=== PATIENT | female | born 1975 | race American Indian/Alaskan Native ===

== ENCOUNTER 2018-05-24 12:39 | Emergency (ER) | payer MEDICAID ==
[2018-05-24] MEDS ORDERED: DUONEB *Not for PRN Use IH ONE ×2 (13:38→16:13)
[2018-05-24] MEDS ORDERED: ZOFRAN IV ONE (13:39)
[2018-05-24] MEDS ORDERED: NACL 0.9% 500 ML 500 ML IV ONE ×2 (13:39→16:46)
--- NOTE | 2018-05-24 13:44 | Emergency Department Report ---
ED Shortness of Breath HPI - General Chief Complaint: Upper Respiratory Infection Stated Complaint: RESPIRATORY INFECTION Time Seen by Provider: 05/24/18 13:35 Source: patient, EMS Mode of arrival: Wheelchair Limitations: No Limitations - History of Present Illness Initial Comments: 43-year-old female past medical history asthma nonsmoker presents with complaint of 2-3 days of progressively worsening cough and subjective fever and chills with associated nausea. Patient states she felt very short of breath secondary to wheezing and called EMS to come to the hospital. Patient is awake alert and oriented has audible wheezing at bedside. Accompanied by at bedside. Denies chest pain but does endorse chest tightness. No previous history of PE or DVT. No recent travel no contraceptive use. Patient states she has not been using any medicines for her asthma recently. MD Complaint: shortness of breath, cough, "asthma attack" Onset/Timin -: days(s) Severity: moderate Improves With: oxygen, bronchodilators Known History Of: asthma Associated Symptoms: cough - Related Data Home Oxygen Therapy: No Previous Rx's Medication Instructions Recorded Last Taken Type Azithromycin [Zithromax Z-DEE] 250 mg PO DAILY #6 tablet 01/25/14 Unknown Rx Cyclobenzaprine HCl [Flexeril 5 MG 5 mg PO Q8HR #20 tablet 08/24/15 Unknown Rx TAB] Lisinopril/Hydrochlorothiazide 1 each PO DAILY #30 tablet 08/24/15 Unknown Rx [Zestoretic 20-12.5 mg] traMADol [Ultram 50 MG tab] 50 mg PO Q6HR PRN #20 tablet 08/24/15 Unknown Rx ALBUTEROL NEB's [Proventil 0.083% 2.5 mg IH Q4H PRN #1 box 05/24/18 Unknown Rx NEBS] Albuterol Sulfate [Ventolin HFA] 2 puff IH Q4H PRN #1 hfa.aer.ad 05/24/18 Unknown Rx Azithromycin [Zithromax Z-DEE] 250 mg PO QDAY #1 pack 05/24/18 Unknown Rx Nebulizer [Compact Compressor 1 each MC Q4H PRN #1 each 05/24/18 Unknown Rx Nebulizer] Ondansetron [Zofran Odt] 4 mg PO Q8H PRN #12 tab.rapdis 05/24/18 Unknown Rx Prednisone [predniSONE 10 mg 10 mg PO .TAPER #1 tab.ds.pk 05/24/18 Unknown Rx (6-Day Pack, 21 Tabs)] Allergies Allergy/AdvReac Type Severity Reaction Status Date / Time No Known Allergies Allergy Verified 05/24/18 12:50 ED Review of Systems ROS: Stated complaint: RESPIRATORY INFECTION Other details as noted in HPI ED Past Medical Hx - Past Medical History Hx Hypertension: Yes Hx Asthma: Yes - Surgical History Hx Cholecystectomy: Yes Additional Surgical History: tonsillectomy - Social History Smoking Status: Current Every Day Smoker Substance Use Type: Alcohol - Medications Home Medications: Home Medications Medication Instructions Recorded Confirmed Last Taken Type Azithromycin [Zithromax Z-DEE] 250 mg PO DAILY #6 tablet 01/25/14 Unknown Rx Cyclobenzaprine HCl [Flexeril 5 MG 5 mg PO Q8HR #20 tablet 08/24/15 Unknown Rx TAB] Lisinopril/Hydrochlorothiazide 1 each PO DAILY #30 tablet 08/24/15 Unknown Rx [Zestoretic 20-12.5 mg] traMADol [Ultram 50 MG tab] 50 mg PO Q6HR PRN #20 tablet 08/24/15 Unknown Rx ALBUTEROL NEB's [Proventil 0.083% 2.5 mg IH Q4H PRN #1 box 05/24/18 Unknown Rx NEBS] Albuterol Sulfate [Ventolin HFA] 2 puff IH Q4H PRN #1 hfa.aer.ad 05/24/18 Unknown Rx Azithromycin [Zithromax Z-DEE] 250 mg PO QDAY #1 pack 05/24/18 Unknown Rx Nebulizer [Compact Compressor 1 each MC Q4H PRN #1 each 05/24/18 Unknown Rx Nebulizer] Ondansetron [Zofran Odt] 4 mg PO Q8H PRN #12 tab.rapdis 05/24/18 Unknown Rx Prednisone [predniSONE 10 mg 10 mg PO .TAPER #1 tab.ds.pk 05/24/18 Unknown Rx (6-Day Pack, 21 Tabs)] ED Physical Exam - General Limitations: No Limitations General appearance: alert, in no apparent distress - Head Head exam: Present: atraumatic, normocephalic - Eye Eye exam: Present: normal appearance - ENT ENT exam: Present: mucous membranes moist - Neck Neck exam: Present: normal inspection - Respiratory Respiratory exam: Present: wheezes (wheezing bilateral lung wolf). Absent: respiratory distress - Cardiovascular Cardiovascular Exam: Present: regular rate, normal rhythm. Absent: systolic murmur, diastolic murmur, rubs, gallop - GI/Abdominal GI/Abdominal exam: Present: soft, normal bowel sounds - Extremities Exam Extremities exam: Present: normal inspection - Back Exam Back exam: Present: normal inspection - Neurological Exam Neurological exam: Present: alert, oriented X3 - Psychiatric Psychiatric exam: Present: normal affect, normal mood - Skin Skin exam: Present: warm, dry, intact, normal color. Absent: rash ED Course Vital Signs 05/24/18 05/24/18 12:50 15:44 Temperature 98.6 F 98.7 F Pulse Rate 103 H 98 H Respiratory 28 H 18 Rate Blood Pressure 153/115 Blood Pressure 138/80 [Left] O2 Sat by Pulse 96 99 Oximetry ED Medical Decision Making - Lab Data Result diagrams: 05/24/18 13:46 05/24/18 13:46 - Medical Decision Making A/P: Asthma exacerbation, possible early acute community-acquired pneumonia 1-d-dimer negative, proBNP unremarkable. No discrete consolidation on x-ray however there appears to be a small dense area noted above right hemidiaphragm. In context to patient's subjective fevers chills productive cough and shortness of breath will treat empirically for community-acquired pneumonia with azithromycin. I discussed this with attending. 2-course of prednisone, albuterol when necessary 3-follow-up with primary care 4-vital signs stabilized before discharge Critical care attestation.: If time is entered above; I have spent that time in minutes in the direct care of this critically ill patient, excluding procedure time. ED Disposition Clinical Impression: Asthma Qualifiers: Asthma severity: moderate Asthma persistence: unspecified Asthma complication type: with acute exacerbation Qualified Code(s): J45.901 - Unspecified asthma with (acute) exacerbation Disposition: -01 TO HOME OR SELFCARE Is pt being admited?: No Does the pt Need Aspirin: No Condition: Stable Instructions: Asthma (ED), Reactive Airways Disease (ED), Community-acquired Pneumonia (ED) Prescriptions: ALBUTEROL NEB's [Proventil 0.083% NEBS] 2.5 mg IH Q4H PRN #1 box PRN Reason: Wheezing Albuterol Sulfate [Ventolin HFA] 2 puff IH Q4H PRN #1 hfa.aer.ad PRN Reason: Shortness Of Breath Azithromycin [Zithromax Z-DEE] 250 mg PO QDAY #1 pack Nebulizer [Compact Compressor Nebulizer] 1 each MC Q4H PRN #1 each PRN Reason: Wheezing Ondansetron [Zofran Odt] 4 mg PO Q8H PRN #12 tab.rapdis PRN Reason: Nausea Prednisone [predniSONE 10 mg (6-Day Pack, 21 Tabs)] 10 mg PO .TAPER #1 tab.ds.pk Referrals: [facility] [Provider Group] - 3-5 Days Forms: Accompanied Note, Work/School Release Form(ED) Time of Disposition: 16:25
[2018-05-24] MEDS ORDERED: XOPENEX IH ONE (14:14)
[2018-05-24 14:23] LABS: BUN/Creatinine Ratio 9; Blood Urea Nitrogen 6 mg/dL (7-17); Calcium 9.4 mg/dL (8.4-10.2); Hemolysis Index 5
[2018-05-24 14:46] LABS: Hematocrit 41.3 % (30.3-42.9); Hemoglobin 13.5 gm/dl (10.1-14.3); Mean Corpuscular HGB Conc 33 % (30-34); Mean Corpuscular Hemoglobin 26 pg (28-32); Mean Corpuscular Volume 80 fl (79-97); Red Blood Count 5.14 M/mm3 (3.65-5.03)
[2018-05-24 14:49] LABS: Platelet Count 158 K/mm3 (140-440); Red Cell Distribution Width 27.9 % (13.2-15.2)
[2018-05-24] MEDS ORDERED: MAGNESIUM SULFATE 1 GM in NACL 0.9% 50 ML IV ONE (15:00)
--- NOTE | 2018-05-24 15:17 | XRay Report ---
FINAL REPORT EXAM: XR CHEST 1V AP HISTORY: SOB TECHNIQUE: AP portable view of the chest PRIORS: None. FINDINGS: Lines, tubes, and devices: There is tubing overlying both the lung apices. Lungs and pleura: Trachea is normal in position. Vague nodular density just above the right diaphragm is probably a nipple shadow. However, this should be confirmed with nipple markers with PA and lateral views. Lungs are otherwise clear of infiltrate, pleural effusion, vascular congestion, or pneumothorax. Cardiomediastinal silhouette: Cardiac and mediastinal silhouettes are unremarkable. Other: Bony structures are intact. IMPRESSION: No acute cardiopulmonary process seen. Vague nodular density directly above the right hemidiaphragm. This should be confirmed with nipple markers on PA and lateral views as a nipple shadow.
[2018-05-24] MEDS ORDERED: ZITHROMAX PO ONE (15:32)
[2018-05-24 15:37] LABS: Band Neutrophils # (Manual) 0.1 K/mm3; Basophils % (Manual) 0 % (0.0-1.8); Eosinophils % (Manual) 0 % (0.0-4.3); Total Cells Counted 100
[2018-05-24 15:38] LABS: Anisocytosis Few; Hypochromasia Few; Platelet Estimate Consistent w Auto; Poikilocytosis Few; Target Cells Few
[2018-05-24] MEDS ORDERED: K-DUR PO ONE (16:30)
[2018-05-24] MEDS ORDERED: VALIUM PO ONE (16:46)
[2018-05-24 18:08] VITALS: BP 146/42
== END 2018-05-24 18:07 | disposition home or self-care (01) ==
LOC: ED 12:39
DX: J45.901 Unspecified asthma with (acute) exacerbation (principal); I10 Essential (primary) hypertension; F17.200 Nicotine dependence, unspecified, uncomplicated; Z90.89 Acquired absence of other organs
CPT/HCPCS: 36415; 71045; 80048; 82140; 82805; 83880; 85007; 85025; 85379; 94640; 96365; 96375; 99285; J2405; J2930; J3475; J7040

== ENCOUNTER 2019-09-08 07:40 | Day surgery (SDC) | payer MEDICAID ==
--- NOTE | 2019-09-06 11:09 | Anesthesia Consultation ---
Anesthesia Consult and Med Hx Date of service: 09/08/19 - Airway Anesthetic Teeth Evaluation: Good, Partials ROM Head & Neck: Adequate Mental/Hyoid Distance: Adequate Mallampati Class: Class II Intubation Access Assessment: Good - Pre-Operative Health Status ASA Pre-Surgery Classification: ASA2 Proposed Anesthetic Plan: General - Pulmonary Hx Smoking: Yes Hx Asthma: Yes ("have symptoms when sick" Last used meds 03/2019) - Cardiovascular System Hx Hypertension: Yes - Central Nervous System Hx Psychiatric Problems: No - Hematic Hx Anemia: Yes (Several Iron infusion) - Other Systems Hx Alcohol Use: Yes (Occas) Hx Substance Use: Yes (Marijuana occas) Hx Cancer: No - Additional Comments Anesthesia Medical History Comments: Pt had postoperative pruritus. Give benadryl or dramamine preop
[2019-09-06 11:43] LABS: Basophils # (Auto) 0.1 K/mm3 (0.0-0.1); Basophils % (Auto) 1.4 % (0.0-1.8); Eosinophils # (Auto) 0.1 K/mm3 (0.0-0.4); Eosinophils % (Auto) 1.6 % (0.0-4.3); Hematocrit 34.5 % (30.3-42.9); Hemoglobin 11.2 gm/dl (10.1-14.3); Lymphocytes # (Auto) 3.1 K/mm3 (1.2-5.4); Lymphocytes % (Auto) 36.1 % (13.4-35.0); Mean Corpuscular HGB Conc 32 % (30-34); Mean Corpuscular Volume 80 fl (79-97); Monocytes # (Auto) 0.5 K/mm3 (0.0-0.8); Monocytes % (Auto) 6.1 % (0.0-7.3); Platelet Count 246 K/mm3 (140-440); Red Blood Count 4.33 M/mm3 (3.65-5.03); Red Cell Distribution Width 15.4 % (13.2-15.2)
--- NOTE | 2019-09-08 07:34 | Short Stay Summary ---
Short Stay Documentation Date of service: 09/08/19 Narrative H&P: 44-year-old with a history of dysfunctional uterine bleeding. The patient underwent endometrial biopsy with findings of benign secretory endometrium. The pelvic ultrasound was unremarkable. The patient attempted medical management without significant improvement of her symptoms. She has elected to undergo surgical management of her uterine bleeding. - History Principal diagnosis: dysfunctional uterine bleeding Past Medical History: No medical history Past Surgical History: cholecystectomy, , tonsillectomy, Other (cerclage) Social history: - Allergies and Medications Current Medications: Allergies lisinopril Adverse Reaction (Verified 09/06/19 12:59) Cough Home Medications Medication Instructions Recorded Confirmed Last Taken Type Ibuprofen [Motrin 800 MG tab] 800 mg PO Q8H PRN 09/03/19 09/03/19 Unknown History - Physical exam General appearance: no acute distress Integumentary: no rash HEENT: Atraumatic Lungs: Clear to auscultation Breasts: deferred Heart: Regular rate Gastrointestinal: normal Female Genitourinary: deferred Rectal Exam: deferred Extremities: no ischemia Neurological: Normal gait - Brief post op/procedure progress note Date of procedure: 09/08/19 Pre-op diagnosis: dysfunctional uterine bleeding Post-op diagnosis: same Procedure: Hysteroscopy; endometrial ablation via NovaSure Anesthesia: RADHA Surgeon: ANDREW ROGERS Estimated blood loss: minimal Pathology: none Condition: stable - Hospital course Hospital course: The patient was admitted the day of surgery and underwent a NovaSure. Please see operative note for details of surgery. Postoperative course was uneventful. - Disposition Condition at discharge: Good Disposition: DC-01 TO HOME OR SELFCARE Short Stay Discharge Plan Activity: other (pelvic rest for 1 week) Diet: regular Additional Instructions: Scheduled follow-up with Dr. Johnson in 2-4 weeks Prescriptions: Ibuprofen [Motrin] 800 mg PO Q8HR PRN #60 tablet PRN Reason: Pain, Mild (1-3) HYDROcodone/APAP 5-325 [[place] 5/325] 1 each PO Q6HR PRN #20 tablet PRN Reason: Pain
[2019-09-08] MEDS ORDERED: fentaNYL 100 MCG/2 ML INJ ONE (07:41)
[2019-09-08] MEDS ORDERED: PROPOFOL 200 MG/20 ML VIAL IV ONE (07:41)
[2019-09-08] MEDS ORDERED: MIDAZOLAM 2 MG/2 ML INJ IV NR (07:43)
[2019-09-08] MEDS ORDERED: ROCURONIUM 50 MG/5 ML INJ IV ONE (07:44)
[2019-09-08] MEDS ORDERED: LACTATED RINGERS 1,000 ML IV SCH (07:44)
[2019-09-08] MEDS ORDERED: SODIUM CHLORIDE 0.9% IRRIG SOLN 3000 ML IR ONE (07:47)
[2019-09-08] MEDS ORDERED: BACTERIOSTATIC SODIUM CHLORIDE 0.9% 30 ML VIAL INFILTRATI ONE (07:50)
[2019-09-08] MEDS ORDERED: ONDANSETRON 4 MG/2 ML INJ ONE (08:46)
[2019-09-08] MEDS ORDERED: dexAMETHasone 20 MG/5 ML VIAL ONE (08:46)
[2019-09-08] MEDS ORDERED: diphenhydrAMINE 50 MG/ML VIAL ONE (08:50)
[2019-09-08] MEDS ORDERED: LIDOCAINE MPF (2%) 20 MG/1 ML VIAL 5 ML ONE (09:00)
--- NOTE | 2019-09-08 09:03 | Operative Report ---
Operative Report Operative Report: Date of procedure: 09/08/2019 Pre-operative diagnosis: DysFunctional uterine bleeding Post-operative diagnosis: Same as above Procedure name(s): Hysteroscopy; endometrial ablation via NovaSure Surgeon: Lay Stack M.D. Warranty Manager: None Anesthesia: Gen. endotracheal anesthesia Findings normal endometrial cavity Indication: 44-year-old 144 with dysfunctional uterine bleeding Procedure The patient was taken to the operating room and given general tracheal anesthesia without complication. The patient was prepped and draped in a normal sterile fashion. A bivalve speculum was placed in the patient's vagina single- tooth tenaculums placed on the anterior lip of the cervix. The cervical os was dilated with graduated dilators. A uterine sound was inserted. The hysteroscope was then placed. Insufflation of the uterine cavity was performed with normal saline. Gen. survey of the uterine cavity revealed normal endometrial cavity. The hysteroscope was then removed. The NovaSure device was then inserted. The endometrial length was 5.0 cm and the uterine width was 4.5 cm. The device was engaged and it passed the surveillance of the uterine cavity. The NovaSure device was then deployed with a energy of 127 W that lasted for 2 minutes. The NovaSure device was then removed. The hysteroscope was again reinserted. There was evidence of charring of the endometrial surface. The remainder of the vaginal instruments were then removed atraumatically. The patient was then successfully extubated taken to the recovery room. All sponge laps and needle counts were correct 2.
[2019-09-08] MEDS ORDERED: fentaNYL 100 MCG/2 ML INJ IV PRN (09:23)
[2019-09-08] MEDS ORDERED: ONDANSETRON 4 MG/2 ML INJ IV PRN (09:23)
[2019-09-08] MEDS: HYDROmorphone 1 MG/1 ML INJ IV PRN ×2 (09:26→10:14)
[2019-09-08] MEDS ORDERED: HYDROmorphone 1 MG/1 ML INJ ONE (09:29)
[2019-09-08 10:30] VITALS: BP 144/89
--- NOTE | 2019-09-09 08:49 | Post Anesthesia Evaluation ---
- Post Anesthesia Evaluation Patient Participated: Yes Airway Patent: Yes Stable Respiratory Function: Yes Nausea/Vomiting: No Temp > 96.8F: Yes Pain Manageable: Yes Adequeate Hydration: Yes Anesthesia Complications: No Block Receding Appropriately: Not Applicable Patient on Ventilator: No
--- NOTE | 2019-09-09 08:50 | Anesthesia Day of Surgery ---
Anesthesia Day of Surgery - Day of Surgery Patient Examined: Yes Patient H&P Reviewed: Yes Patient is NPO: Yes
== END 2019-09-08 10:40 | disposition home or self-care (01) ==
LOC: OR 07:40
PROVIDERS: ATTEND Obstetrics & Gynecology
DX: N85.8 Other specified noninflammatory disorders of uterus (principal); G43.909 Migraine, unspecified, not intractable, without status migrainosus; J45.909 Unspecified asthma, uncomplicated; F17.210 Nicotine dependence, cigarettes, uncomplicated; Z79.899 Other long term (current) drug therapy; Z98.890 Other specified postprocedural states; Z90.49 Acquired absence of other specified parts of digestive tract; Z72.89 Other problems related to lifestyle; Z86.2 Personal history of diseases of the blood and blood-forming organs and certain disorders involving the immune mechanism
CPT/HCPCS: 36415; 58563; 84703; 85025; A4217; J1100; J1170; J1200; J2250; J2405; J2704; J3010; J7120